=== PATIENT | female | born 1985 | race Caucasian/White ===

== ENCOUNTER → 2021-08-28 09:42 | Outpatient (BNVA) | payer MEDICARE, MEDICAID, SELFPAY | PROVIDERS: PCP Internal Medicine; Visit Provider Physician Assistant ==

== ENCOUNTER → 2021-09-01 08:03 | Outpatient (BNVA) | payer MEDICARE, MEDICAID, SELFPAY | PROVIDERS: PCP Internal Medicine; Visit Provider Surgery | CPT/HCPCS: Q3014 ==

== ENCOUNTER 2021-09-11 09:05 | Outpatient (REF) | payer MEDICARE, MEDICAID, SELFPAY ==
--- NOTE | 2021-09-11 09:20 | ECG_ITS ---
Test Reason : morbid obesity Blood Pressure : / mmHG Vent. Rate : 063 BPM Atrial Rate : 063 BPM P-R Int : 156 ms QRS Dur : 076 ms QT Int : 408 ms P-R-T Axes : 050 026 004 degrees QTc Int : 417 ms Normal sinus rhythm Normal ECG No previous ECGs available Referred By: Galileo Lacey Electronically Signed By:HENRY DURHAM MD
[2021-09-11 09:29] LABS: MANUAL DIFF FLAG NO
[2021-09-11 09:54] LABS: Basophils Absolute Auto 0.1 X10*3/uL (0.0-0.2); Basophils Percent Auto 0.8 % (0-2); Eosinophils Absolute Auto 0.4 X10*3/uL (0.0-0.4); Eosinophils Percent Auto 4.5 % (0-4); Hematocrit 38.6 % (37-47); Hemoglobin 12.6 g/dl (12.0-16.0); Imm Gran Abs Auto 0.02 X10*3/uL (0.00-0.03); Imm Gran Pct Auto 0.3 % (0.0-0.4); Lymphocytes Absolute Auto 2.2 X10*3/uL (1.2-4.9); Lymphocytes Percent Auto 27.9 % (20-40); Mean Corpuscular HGB Conc 32.6 g/dl (31.0-35.0); Mean Corpuscular Hemoglobin 28.8 pg (27.0-33.0); Mean Corpuscular Volume 88.3 fL (80-98); Mean Platelet Volume 9.5 fL (9.4-12.3); Monocytes Absolute Auto 0.4 X10*3/uL (0.1-1.2); Monocytes Percent Auto 5.1 % (2-11); Neutrophils Absolute Auto 4.8 X10*3/uL (2.0-8.3); Neutrophils Percent Auto 61.4 % (45-73); Platelet Count 470 X10*3/uL (160-400); Red Blood Count 4.37 X10*6/uL (4.20-5.50); White Blood Count 7.8 X10*3/uL (4.8-10.8)
[2021-09-11 10:03] LABS: Estimated Average Glucose 105 mg/dL; Hemoglobin A1c % 5.3 %
[2021-09-11 10:22] LABS: Alanine Aminotransferase 11 U/L (0-31); Albumin Level 4.3 g/dL (3.5-5.0); Alkaline Phosphatase 73 U/L (39-117); Anion Gap 11 (12-20); Aspartate Amino Transferase 12 U/L (5-31); Bilirubin Total 0.3 mg/dL (0.0-1.0); Blood Urea Nitrogen 11 mg/dL (9-16); C Reactive Protein 0.77 mg/dL (< or = 0.50); Calcium 9.8 mg/dL (8.4-10.2); Carbon Dioxide 28 mmol/L (22-29); Chloride 105 mmol/L (96-108); Cholesterol 146 mg/dL; Estimated Glomerular Filt Rate > 60; Glucose Random 95 mg/dL (60-115); HDL Cholesterol 61 mg/dL; Iron 51 mcg/dL (30-160); LDL Cholesterol Calculated 66 mg/dl; Percent Iron Saturation 16 % (15-50); Potassium 4.7 mmol/L (3.3-5.1); Sodium 139 mmol/L (135-145); Total Iron Binding Capacity 319 mcg/dL (228-428); Triglycerides 99 mg/dL; Unsaturated Iron Binding 268 ug/dL
[2021-09-11 10:47] LABS: Ferritin 42 ng/mL (10-122); TSH reflex Free T4 1.03 uIU/mL (0.32-4.0); Vitamin D 25-OH Total 33.5 ng/mL (>30)
[2021-09-11 10:49] LABS: Folate 7.8 ng/mL (> or = 4.0); Vitamin B12 220 pg/mL (200-900)
[2021-09-11 10:50] LABS: Insulin 9 uU/mL (2-29)
[2021-09-12 16:05] LABS: Calcium (PTHI) 9.7 mg/dL (8.6-10.2); PTHI 47 pg/mL (14-64)
[2021-09-14 02:17] LABS: Zinc 85 mcg/dL (60-130)
[2021-09-14 13:03] LABS: H Pylori Breath Test Negative (Negative)
[2021-09-14 21:11] LABS: Vitamin A 52 mcg/dL (38-98)
[2021-09-15 11:31] LABS: Vitamin B1 12 nmol/L (8-30)
== END 2021-09-11 09:06 | disposition home or self-care (01) ==
LOC: HO.LAB 09:05
PROVIDERS: PCP Internal Medicine; Visit Provider Surgery
DX: E66.01 Morbid (severe) obesity due to excess calories (principal)
CPT/HCPCS: 36415; 80053; 80061; 82306; 82607; 82728; 82746; 83013; 83036; 83525; 83540; 83970; 84425; 84443; 84590; 84630; 85025; 86140; 93005; 99211

== ENCOUNTER → 2021-09-29 08:10 | Outpatient (BNVA) | payer MEDICARE, MEDICAID, SELFPAY | PROVIDERS: PCP Internal Medicine; Visit Provider Surgery | DX: E66.01 Morbid (severe) obesity due to excess calories (principal) | CPT/HCPCS: Q3014 ==

== ENCOUNTER → 2021-10-06 08:04 | Outpatient (BNVA) | payer MEDICARE, MEDICAID, SELFPAY | PROVIDERS: PCP Internal Medicine; Visit Provider Dietitian, Registered | DX: E66.01 Morbid (severe) obesity due to excess calories (principal) | CPT/HCPCS: 97802 ==

== ENCOUNTER 2021-10-16 09:08 | Outpatient (REF) | payer MEDICARE, MEDICAID, SELFPAY ==
--- NOTE | ~2021-10-16 | XR_ITS ---
EXAMINATION: XR CHEST CLINICAL INFORMATION: Morbid/severe obesity. COMPARISON: None TECHNIQUE: 2 views of the chest were obtained. FINDINGS: No significant abnormality is noted involving the heart, lungs, mediastinum, bony thorax or soft tissues. XR/XR chest 2V IMPRESSION: Unremarkable chest examination.
--- NOTE | ~2021-10-16 | FL_ITS ---
EXAMINATION: UPPER GI AIR-CONTRAST SERIES CLINICAL INFORMATION: Morbid/severe obesity due to excess calories. COMPARISON: None. TECHNIQUE: Routine upper GI air-contrast study was performed in upright and lying position. FINDINGS: Following oral administration of thick barium and effervescent granules, there is normal propagation of bolus from the oral cavity through the pharynx and esophagus and into the stomach without any evidence of obstruction, narrowing or stricture. On placing patient supine and prone lying, there is moderate gastroesophageal reflux with small transient sliding hiatal hernia. The rest of the course of the stomach, duodenal bulb and the CBD is normal. The mucosal pattern of the stomach and the duodenum is normal. FLUOROSCOPY TIME: 0.9 minutes. DOSE AREA PRODUCT: 30.631 uGy-m2 (microgray-meter squared) . FL/FL upper GI series IMPRESSION: Moderate gastroesophageal reflux with reducible sliding hiatal hernia.
--- NOTE | ~2021-10-16 | US_ITS ---
EXAMINATION: US COMPLETE ABDOMEN WITH LIVER ELASTOGRAPHY CLINICAL INFORMATION: Morbid to severe obesity. COMPARISON: None. TECHNIQUE: Real-time imaging of the abdominal viscera. Noninvasive ultrasound liver fibrosis assessment is performed using Latonia ElastPQ point quantification shear wave elastography (pSWE) with a C5-2 MHz transducer. Multiple elastography samples are obtained. FINDINGS: PANCREAS: Normal. The visualized pancreatic head and body are normal in appearance. The remainder of the pancreas is obscured from visualization by the overlying bowel gas. ABDOMINAL AORTA: The proximal, middle, and distal aortic segments are normal in caliber. INFERIOR VENA CAVA: Visualized portions are normal. LIVER: The liver demonstrates normal size, contour and echogenicity. No focal lesion or intrahepatic biliary duct dilatation. The right lobe measures 18.7 cm in length. The left lobe measures 11.1 cm in length. Portal flow is hepatopetal. Shear wave liver elastography median stiffness is 1.84 m/s (reference: normal median stiffness is 1.3 m/s or less). IQR/median stiffness to assess sampling precision is 0.875 (reference: good quality data set is IQR/median stiffness of 0.15 or less). GALLBLADDER: There are multiple echogenic gallstones without wall thickening or pericholecystic fluid collection. Gallbladder wall thickness is 0.2 cm. COMMON BILE DUCT: Normal in caliber measuring 0.3 cm in diameter. RIGHT KIDNEY: Normal. No hydronephrosis. No renal calculi or focal parenchymal lesions. The kidney measures 11.4 cm in maximum dimension. LEFT KIDNEY: Normal. No hydronephrosis. No renal calculi or focal parenchymal lesions. The kidney measures 11.7 cm in maximum dimension. SPLEEN: Normal. The spleen measures 9.5 cm in maximum dimension. FREE FLUID: None. US/US abdomen comp w elastography IMPRESSION: 1. Diffuse hepatic steatosis without focal lesion. 2. Gallstones without wall thickening. 3. Liver elastography: Median liver stiffness 1.84 m/s. Findings suggestive of cACLD suggestive. REFERENCE: Society of Radiologists in Ultrasound Liver Stiffness Thresholds (2019): LIVER STIFFNESS THRESHOLDS: *Liver Stiffness equal or less than 1.3 m/s: High probability of being normal. *Liver Stiffness less than 1.7 m/s: In the absence of other known clinical signs, rules out compensated advanced chronic liver disease. *Liver Stiffness 1.7-2.1 m/s: Suggestive of compensated advanced chronic liver disease but need further test for confirmation. *Liver Stiffness over 2.1 m/s: Rules in compensated advanced chronic liver disease. *Liver Stiffness over 2.4 m/s: Suggestive of clinically significant portal hypertension. QUALITY OF DATA SET: *IQR/Median value equal or less than 0.15 implies a quality data set. *IQR/Median value over 0.15 implies a poor quality data set. SIGNIFICANT CHANGE FROM PRIOR EXAM: Significant change if liver stiffness measurement is 10% or greater from prior exam. OTHER CONSIDERATIONS: The stage of liver fibrosis may be overestimated in the setting of acute hepatitis, liver inflammation, elevated liver function tests, hepatic vascular congestion, obstructive cholestasis, non-fasting state, and infiltrative diseases such as amyloidosis and lymphoma. In some patients with NAFLD, the liver stiffness thresholds for compensated advanced chronic liver disease may be lower. In causes other than viral hepatitis and NAFLD, liver stiffness thresholds are not well established.
== END 2021-10-16 09:09 | disposition home or self-care (01) ==
LOC: HO.US 09:08
PROVIDERS: PCP Internal Medicine; Visit Provider Surgery
DX: E66.01 Morbid (severe) obesity due to excess calories (principal)
CPT/HCPCS: 71046; 74240; 76705; 76981

== ENCOUNTER 2021-10-24 08:50 | Outpatient (REF) | payer MEDICARE, MEDICAID, SELFPAY ==
--- NOTE | 2021-10-24 14:46 | PFT_ITS ---
Forced vital capacity, FEV1, DJH99-29, and MVV are all normal. Post bronchodilator therapy, there is no significant change. Total lung capacity normal. Residual volume slightly decreased. Diffusion capacity normal. CONCLUSION: Normal pulmonary function test. No evidence of obstructive or restrictive pulmonary disorder. Decreased residual volume is probably related to exogenous obesity. MD ALESHIA Davenport/ZAKIYA / [id number]
== END 2021-10-24 08:51 | disposition home or self-care (01) ==
LOC: HO.RESP 08:50
PROVIDERS: Visit Provider Surgery
DX: E66.01 Morbid (severe) obesity due to excess calories (principal)
CPT/HCPCS: 94060; 94727; 94729

== ENCOUNTER → 2021-10-25 11:25 | Outpatient (BNVA) | payer MEDICARE, MEDICAID, SELFPAY | PROVIDERS: PCP Internal Medicine; Visit Provider Surgery | DX: E66.01 Morbid (severe) obesity due to excess calories (principal); Z68.41 Body mass index [BMI] 40.0-44.9, adult | CPT/HCPCS: Q3014 ==

== ENCOUNTER 2025-07-21 11:00 | Outpatient (AMB) | payer MEDICARE, MEDICAID, SELFPAY ==
--- NOTE | 2025-07-21 11:27 | MHC.OFFVIS ---
Intake Visit Reasons: follow up Allergies No Known Allergies Allergy (Verified 09/01/21 13:08) Medication List - Last Reconciled 07/21/25 by Adolfo Phillips MD cyanocobalamin (vitamin B-12) 1,000 mcg PO DAILY fexofenadine-pseudoephedrine 60-120 mg ER (Allergy Relief-D (fexofenadine)) 1 tab PO Q12H fluoxetine 60 mg (3 x 20 mg) PO DAILY 90 days fluticasone propionate 50 mcg/actuation sprays intranasal mecobalamin (vitamin B12) 1,000 mcg sublingual DAILY HPI Comments Details: 39 years old woman with family history of bipolar disorder, with depression and anxiety, and migraine headaches. She is presenting with headaches and memory concerns. She reports frequent headaches, with a severe migraine episode last month lasting three days. She managed the episode with ibuprofen after declining an injection at urgent care, later receiving naproxen 500 mg from her PCP, which she states is effective. She has notable anxiety about her memory, experiencing delayed recall but denies serious memory dysfunction. Last MRI was in [id number]. Her medical history includes generalized anxiety disorder, for which she takes fluoxetine 60 mg, and is on a high dose of lorazepam, prompting recommendation for a psychology consult. She also reports daytime fatigue suggesting a sleep disturbance, and a sleep study is advised. [facility] Medical History (Updated 07/21/25 @ 11:37 by Adolfo Phillips MD) Migraine Anxiety Morbid obesity Surgical History (Updated 09/01/21 @ 11:44 by NAVDEEP Simental) Hx of appendectomy Hx of dilation and curettage Hx of wisdom tooth extraction Family History (Updated 09/01/21 @ 11:47 by NAVDEEP Simental) Mother No problems noted. Father Cancer Brother No problems noted. Brother No problems noted. Brother No problems noted. Brother No problems noted. Brother No problems noted. Sister No problems noted. Sister No problems noted. Sister Heart disease Son No problems noted. Son No problems noted. Daughter No problems noted. Daughter No problems noted. Social History (Updated 09/01/21 @ 11:48 by NAVDEEP Simental) Alcohol intake: current Alcohol intake frequency: holidays/special occasions only Patient Tobacco Use Status: Current everyday Tobacco user Review of Systems Const Details: - Neurological: Reports headaches (migraines) occurring approximately several times per month; no current visual changes or significant neurological deficits reported. - Psychiatric: Reports memory trouble, anxiety, stress, and occasional day-time sleepiness; denies hallucinations or delusions. - Respiratory: Denies snoring or known sleep apnea. - Gastrointestinal: Not discussed. - Musculoskeletal: Not discussed. - Cardiovascular: Not discussed. - Dermatological: Not discussed. - Endocrine: Not discussed. - Hematological/Lymphatic: Not discussed. Physical Exam Neuro Other: Mental Status: Alert and oriented to person, place, and time. Normal attention. Normal spontaneous speech, fluency, and comprehension. No obvious issues with mood and memory. Affect is appropriate. Cranial Nerves: CN II: Visual moreno full to confrontation, visual acuity intact. CN III, IV, : Pupils equal, round, reactive to light and accommodation. Extraocular movements are normal. CN V: Facial sensation is normal. CN VII: Facial movements symmetrical. CN VIII: Hearing intact to bedside conversation is normal. CN IX, X: Palate elevates symmetrically. CN XI: Shoulder shrug and head turn symmetrical. CN XII: Tongue midline without atrophy or fasciculations. Extrapyramidal: Full facial expressions and blinking. No rigidity. Movements are appropriate with no tremor or abnormality. Speech: Normal; no dysarthria or tremor. Assessment & Plan Assessment & Plan (1) Migraine: Comment: Meds tried and failed: Depakote, Seroquel, Wellbutrin, Sumatriptan. Code(s): G43.909 - Migraine, unspecified, not intractable, without status migrainosus Category: Medical Qualifiers: Intractability: not intractable Migraine type: migraine (< 15 days per month) without aura Status migrainosus presence: without status migrainosus Qualified Code(s): G43.009 - Migraine without aura, not intractable, without status migrainosus (2) Anxiety: Code(s): F41.9 - Anxiety disorder, unspecified Category: Medical (3) MARIYA (obstructive sleep apnea): Code(s): G47.33 - Obstructive sleep apnea (adult) (pediatric) Category: Medical Plan Impression: a: Migraine without aura b: Anxiety disorder c: Cognitive symptoms probably related to psychological disease or sleep Rec: a: She is advised to have a formal consultation and f/u with a behavioral prescribing provider b: Sleep study to r/o MARIYA c: Fluoxetine 20mg, 3 a day;I will continue to prescribe until she finds a provider d: Naproxen 500mg one a day as needed Orders: Orders RT home sleep study Today G47.33 - Obstructive sleep apnea (adult) (pediatric) Coding Level of Care Code Tele Est Pt Level 4 (25558) Diagnoses Migraine without aura and without status migrainosus, not intractable G43.009 Intractability: not intractable Migraine type: migraine (< 15 days per month) without aura Status migrainosus presence: without status migrainosus Anxiety F41.9 MARIYA (obstructive sleep apnea) G47.33
--- OUTSIDE RECORDS SUMMARY | 2025-07-21 11:56 | XMS_ITS | Clinical Summary ---
Author Organization [address] Address [address] [place] [phone] Phone Care Team Providers Care Rn Supplemental Name Role Phone Jose Jay MD Primary Care Provider [phone] Surgical History Surgery Date Site/Laterality Comments APPENDECTOMY PROCEDURE: HISTORICAL APPENDECTOMY OTHER SURGICAL HISTORY 2006 PROCEDURE: GA DILATION & CURETTAGE DX&/THER NONOBSTETRIC Medical History Medical History Date Comments Anxiety DX:Anxiety Eczema DX:Eczema Tobacco abuse DX:Tobacco abuse Cervical intraepithelial neoplasia I DX:Cervical intraepithelial neoplasia I; COMMENT: HPV+ Herpetic lesion 09/05/2010 DX:Herpetic lesi on Family History Medical History Relation Name Comments Other: lymphoma Father Relation Name Status Comments Brother 1 Alive twin born 2002; Miguel A Brother 2 Alive healthy Brother 3 Alive healthy Brother 4 Alive healthy Daughter Alive healthy; 11/2006 Father Alive bipolar; lympho ma 10/03 Maternal Grandfather Alive not bio logic; prostate Maternal Grandmother Alive not bio logic; healthy Mother Alive healthy; adopte d Paternal Grandfather Alive healthy Paternal Grandmother Alive healthy Sister 1 Alive twin born 2002; tetralogy of Fallot;Susie Sister 2 Alive healthy Sister 3 Alive healthy Sister 4 Alive healthy Social History Tobacco Use Types Packs/Day Years Used Date Smoking Tobacco: Some Days Cigarettes Started: 11/25/1999 Smokeless Tobacco: Never Alcohol Use Standard Drinks/Week Comments Yes 0 (1 standard drink = 0.6 oz pur e alcohol) Comments Unknown Sex and Gender Information Value Date Recorded Sex Assigned at Not on file Legal Sex Female 10:54 AM EST Gender Identity Not on file Sexual Orientation Not on file Obstetrics History Last Filed Vital Signs Vital Sign Reading Time Taken Comments Blood Pressure - - Pulse - - Temperature - - Respiratory Rate - - Oxygen Saturation - - Inhaled Oxygen Concentration - - Weight 114 kg (251 lb) 04/25/2023 9:03 AM EDT Height 167.6 cm (5' 6 ) 10/22/2022 9:18 AM EST Body Mass Index 40.51 10/22/2022 9:18 AM EST Plan of Treatment Upcoming Encounters Date Type Department Care Team (Late st Contact Info) Description 10/26/2025 1:40 PM EST Consult Gastroenterology - [address] [facility] [address] [place] [phone] Laura Goldberg MD [address] [place] [address] 02/16/2026 8:30 AM EDT Office Visit Bariatric Surgery - [place] [address] [facility] [address] [place] [phone] Rubia Marshall PA [address] [place] [address] Health Maintenance Due Date Last Done Comments Breast Cancer Screening 1984 Hepatitis B Vaccines (3 of 3 - 3-dose series) 12/13/1999 10/18/1999, 11/29/1998 Pneumococcal Vaccine: Pediatrics (0 to 5 Years) and At-Risk Patients (6 to 49 Years) (1 of 2 - PCV) 2003 HPV Vaccines (2 - 3-dose series) 03/28/2009 02/28/2009 HIV Screening 10/23/2022 Hepatitis C Screening 10/23/2022 Medicare Annual Wellness Visit 10/23/2022 Social Influencers of Health Screening 10/23/2022 DTaP,Tdap,and Td Vaccines (7 - Td or Tdap) 04/21/2023 04/21/2013, 05/29/1989, 02/24/1986, Additional history exists COVID-19 Vaccine ( - season) 2024 Depression Screening 11/25/2024 Influenza Vaccine (#1) 2025 6, 09/20/2015, 09/01/2013, Additional history exists Cervical Cancer Screening: HPV 03/04/2030 03/04/2025 IPV Vaccines Completed 05/29/1989, 12/1985, 02/13/1985, Additional history exists MMR Vaccines Completed 01/06/1995, 11/10/1985 HIB Vaccines Aged Out No longer eligi ble based on patient's age to complete this topic Hepatitis A Vaccines Aged Out No long er eligible based on patient's age to complete this topic Meningococcal ACWY Vaccine Aged Out N o longer eligible based on patient's age to complete this topic Meningococcal B Vaccine Aged Out No l onger eligible based on patient's age to complete this topic RSV Immunization Patients Under 20 months Aged Out No longer eligible based on patient's age to complete this topic Varicella Vaccines Aged Out No longer eligible based on patient's age to complete this topic Procedures Procedure Name Priority Date/Time Associated Diagnosis Comments HPV WITH REFLEX GENOTYPE Routine 03/04/2025 12:00 PM EDT Encounter for gynecological examination (general) (routine) without abnormal findings from Last 3 Months or Most Recently Relevant to Health Maintenance Results * HPV with reflex genotype (03/04/2025 12:00 PM EDT) HPV Negative Negative LAB MICROBIOLOGY METHOD 03/05/2025 12:59 PM EDT [facility] Brushing/Spatula Cervix uteri structure / Unknown 03/04/2025 12:00 PM EDT 03/04/2025 3:14 PM EDT Laz Rodriguez MD LAB MOLECULAR DIAGNOSTICS KANDY MORALEZ Final Result [facility] [address] [place] [address], from Last 3 Months or Most Recently Relevant to Health Maintenance Insurance MEDICARE MEDICAID - [place] Care Teams Rn Supplemental Relationship Specialty Start Date End Date Jose Jay MD [address] [place] [phone] PCP - General Internal Medicine 09/20/22
--- OUTSIDE RECORDS SUMMARY | 2025-07-21 11:56 | XMS_ITS | Encounter Summary ---
Author Organization [facility] Address [address] [place] [address] Care Team Providers Care Mathematical Engineering Technician Name Role Phone Jose Jay MD Primary Care Provider [phone] Encounter Details Date Type Department Care Team (Latest Contact Info) Description 03/04/2025 Lab Requisition [facility] - Main Lab 299 [facility] [place] [address] Laz Rodriguez MD 299 [facility] [address] [place] [address] Encounter for gynecological examination (general) (routine) without abnormal findings Social History Tobacco Use Types Packs/Day Years [...] on file Sexual Orientation Not on file documented as of this encounter Plan of Treatment Upcoming Encounters Date Type Department Care Team (Late st Contact Info) Description 10/26/2025 1:40 PM EST Consult Gastroenterology - 299 [facility] 299 [facility] [address] [place] [address] Laura Goldberg MD [address] [place] [address] 02/16/2026 8:30 AM EDT Office Visit Bariatric Surgery - [place] [address] [facility] [address] [place] [address] Rubia Marshall PA [address] [place] [address] documented as of this encounter Procedures Procedure Name Priority Date/Time Associated Diagnosis Comments HPV WITH REFLEX GENOTYPE Routine 03/04/2025 12:00 PM EDT Encounter for gynecological examination (general) (routine) without abnormal findings PAP SMEAR Routine 03/04/2025 12:00 PM EDT Encounter for gynecological examination (general) (routine) without abnormal findings documented in this encounter Results * HPV with reflex genotype (03/04/2025 12:00 PM EDT) HPV Negative Negative LAB MICROBIOLOGY METHOD 03/05/2025 12:59 PM EDT [facility] Brushing/Spatula Cervix uteri structure / Unknown 03/04/2025 12:00 PM EDT 03/04/2025 3:14 PM EDT Laz Rodriguez MD LAB MOLECULAR DIAGNOSTICS KANDY MORALEZ Final Result [facility] [address] [place] [address], * Pap smear (03/04/2025 12:00 PM EDT) Interpretation Negative for intraepithelial lesion or malignancy 03/05/2025 2:31 PM EDT [facility] General Categorization Negative 03/05/2025 2:31 PM EDT [facility] LMP 02/19/2025 03/05/2025 2:31 PM EDT [facility] Specimen Adequacy Satisfactory for evaluation, endocervical/ewing sformation zone component present 03/05/2025 2:31 PM EDT [facility] Pap Methodology Liquid Based Pap Test 03/05/2025 2:31 PM EDT [facility] Disclaimer The Pap test is a screening test which carries an inherent false negative rate. These test results should be correlated with the patient's clinical findings and history. This Pap test was processed using an automated screening system. Technical cytopathology services provided by [facility], at [address] [place] [address] (CLIA # [id number]/Sherine Canales MD, Inventory Technician.) 03/05/2025 2:31 PM EDT [facility] Console Pap Interpretation Reported 03/05/2025 2:31 PM EDT [facility] Brushing/Spatula Cervix uteri structure / Unknown 03/04/2025 12:00 PM EDT 03/04/2025 3:14 PM EDT us Laz Rodriguez MD LAB CYTOLOGY ORDERABLES Final Result [facility] [address] [place] [address], documented in this encounter Visit Diagnoses Diagnosis Encounter for gynecological examination (general) (routine) without abnormal findings documented in this encounter Care Teams Mathematical Engineering Technician Relationship Specialty Start Date End Date Jose Jay MD [address] [place] [address] PCP - General Internal Medicine 09/20/22 documented as of this encounter
--- OUTSIDE RECORDS SUMMARY | 2025-07-21 11:56 | XMS_ITS | Encounter Summary ---
Author Organization [facility] Address [address] [place] [address] Care Team Providers Care Senior Program Analyst Name Role Phone Jose Jay MD Primary Care Provider [phone] Encounter Details Date Type Department Care Team (Latest Contact Info) Description 03/04/2025 Lab Requisition [facility] - Main Lab [address] [facility] [place] [address] Laz Rodriguez MD 299 [facility] [address] [place] [address] Encounter for screening for infections with a predominantly sexual mode of transmission Social History Tobacco Use Types Packs/Day Years [...] 1:40 PM EST Consult Gastroenterology - [address] [facility] 299 [facility] [address] [place] [address] Laura Goldberg MD [address] [place] [address] 02/16/2026 8:30 AM EDT Office Visit Bariatric Surgery - [place] [address] [facility] [address] [place] [address] Rubia Marshall PA [address] [place] [address] documented as of this encounter Procedures Procedure Name Priority Date/Time Associated Diagnosis Comments CHLAMYDIA TRACHOMATIS AND NEISSERIA GONORRHOEAE PCR Routine 03/04/2025 12:00 AM EDT Encounter for screening for infections with a predominantly sexual mode of transmission documented in this encounter Results * Chlamydia trachomatis and Neisseria gonorrhoeae molecular study (03/04/2025 12:00 AM EDT) Neisseria gonorrhoeae PCR Negative Negative LAB MOLECULAR DIAGNOSTICS METHOD 03/04/2025 3:29 PM EDT [facility] Chlamydia trachomatis PCR Negative Negative LAB MOLECULAR DIAGNOSTICS METHOD 03/04/2025 3:29 PM EDT [facility] Swab Cervix uteri structure / Unknown 03/04/2025 03/04/2025 1:15 PM EDT us Laz Rodriguez MD LAB MICROBIOLOGY - GENERAL ORD ERABLES Final Result [facility] [address] [place] [address], documented in this encounter Visit Diagnoses Diagnosis Encounter for screening for infections with a predominantly sexual mode of transmission documented in this encounter Care Teams Senior Program Analyst Relationship Specialty Start Date End Date Jose Jay MD [address] [place] [address] PCP - General Internal Medicine 09/20/22 documented as of this encounter
== END 2025-07-21 11:39 | disposition home or self-care (01) ==
LOC: HO.HSM 11:02
PROVIDERS: PCP Internal Medicine; Visit Provider Psychiatry & Neurology Neurology
DX: G43.009 Migraine without aura, not intractable, without status migrainosus (principal); F41.9 Anxiety disorder, unspecified; G47.33 Obstructive sleep apnea (adult) (pediatric)
CPT/HCPCS: 99214

== ENCOUNTER → 2025-07-21 11:00 | Outpatient (BNVA) | payer MEDICARE, MEDICAID, SELFPAY | PROVIDERS: PCP Internal Medicine; Visit Provider Psychiatry & Neurology Neurology | DX: G43.009 Migraine without aura, not intractable, without status migrainosus (principal); F41.9 Anxiety disorder, unspecified; G47.33 Obstructive sleep apnea (adult) (pediatric) | CPT/HCPCS: 99212 ==